=== PATIENT | male | born 1950 | race Caucasian/White ===

== ENCOUNTER 2021-11-30 07:05 | Day surgery (SDC) | payer OTHER ==
[2021-11-25 10:08] LABS: Potassium 4.5 mmol/L (3.5-5.1)
[2021-11-25 10:10] LABS: Absolute Lymphocytes (CBC) 2.4 K/uL (0.7-4.9); Hematocrit 49.3 % (39.6-49.0); Lymphocytes % 29.2 % (15.3-44.8); MCV 82.9 fL (80-100); MPV 8.5 fL (7.6-11.3); RBC Red Blood Cell Count 5.94 M/uL (4.33-5.43)
[2021-11-25 10:25] LABS: SARS-CoV-2 Antigen Rapid Res Negative (Negative)
--- NOTE | 2021-11-25 12:39 | EKG ---
Test Date: 2021-11-25 Test Time: 10:00:56 Assembly Cleaner: TERRY MEASUREMENT RESULTS: Intervals: Rate: 68 VT: QRSD: 86 QT: 380 QTc: 404 Baker: P: VT: QRS: -32 T: 60 INTERPRETIVE STATEMENTS: Atrial fibrillation with premature ventricular or aberrantly conducted complexes Left axis deviation Abnormal ECG Compared to ECG 04/25/2012 20:32:20 Ventricular premature complex(es) now present Left-axis deviation now present Electronically Signed On 11-25-21 12:38:52 CDT by Sanchez Sung
[2021-11-30] MEDS ORDERED: CEFAZOLIN 2 GM IN 0.9% NACL 2 GM/100 ML BAG ONE (07:26)
[2021-11-30] MEDS ORDERED: NA CHLORIDE 0.9% 1,000 ML ONE ×2 (07:26→10:59)
[2021-11-30] MEDS ORDERED: DEPO-MEDROL 40 MG/ML IM ONE (07:27)
[2021-11-30] MEDS ORDERED: KETAMINE HCL 500 MG/5 ML VIAL ONE (08:06)
[2021-11-30] MEDS ORDERED: FENTANYL CITR 100 MCG/2 ML ONE ×2 (08:06→09:44)
[2021-11-30] MEDS ORDERED: propofoL 200 MG/20 ML VIAL IV ONE (08:06)
[2021-11-30] MEDS ORDERED: dexAMETHasone 10 MG/ML VIAL ONE (08:07)
[2021-11-30] MEDS ORDERED: ROCURONIUM 50 MG/5 ML VIAL IV ONE (08:07)
[2021-11-30] MEDS ORDERED: LIDOCAINE 2% MPF 5 ML VIAL ONE (08:07)
[2021-11-30] MEDS ORDERED: MIDAZOLAM HCL 2 MG/2 ML INJ ONE (08:07)
[2021-11-30] MEDS ORDERED: ONDANSETRON 4 MG/2 ML VIAL ONE (08:12)
[2021-11-30] MEDS ORDERED: NS 0.9% VIAL 20 ML ONE (08:17)
[2021-11-30] MEDS ORDERED: THROMBIN 5000 UNITS/VIAL TOP ONE (08:41)
[2021-11-30] MEDS ORDERED: GLYCOPYRROLATE 0.2 MG/ML SYR ONE (09:54)
[2021-11-30] MEDS: HYDROMORPHONE HCL 1 MG/ML INJ ONE ×4 (10:25→10:48)
[2021-11-30] MEDS ORDERED: INSULIN -REGULAR HUMAN 50 UNIT/0.5 ML ML ONE (10:41)
[2021-11-30 10:50] VITALS: O2SAT 96
--- NOTE | 2021-11-30 11:58 | RAD REPORT ---
EXAM DESCRIPTION: RAD - Fluoroscopy <1 Hour - 11/30/2021 11:27 am FINDINGS: There were 7 portable C-arm views submitted from a fluoroscopic assisted spinal procedure. Fluoro time was less than 0.1 minutes. Cumulative dose was 5.23 mGy.
[2021-11-30] MEDS ORDERED: HYDROCODONE/APAP 10/325 TAB ONE (12:01)
[2021-11-30 12:21] VITALS: TEMP 97.6
[2021-11-30 12:53] VITALS: BP 146/79
== END 2021-11-30 12:52 | disposition home or self-care (01) ==
LOC: OR 07:05
PROVIDERS: ATTEND Orthopaedic Surgery
PROC: 0ST20ZZ Resection of Lumbar Vertebral Disc, Open Approach (ICD-10-PCS; principal; 2021-11-30 08:45)
DX: M51.27 Other intervertebral disc displacement, lumbosacral region (principal); M54.9 Dorsalgia, unspecified; Z20.822 Contact with and (suspected) exposure to COVID-19; I10 Essential (primary) hypertension; E11.9 Type 2 diabetes mellitus without complications; N28.9 Disorder of kidney and ureter, unspecified; I25.10 Atherosclerotic heart disease of native coronary artery without angina pectoris
CPT/HCPCS: 36415; 76000; 80048; 82947; 85025; 87811; 93005; J0690; J1030; J1100; J1170; J1815; J2250; J2405; J2704; J3010; J7030

== ENCOUNTER 2023-12-19 10:53 | Emergency (ER) | payer OTHER ==
[2023-12-19] MEDS ORDERED: NA CHLORIDE 0.9% 1,000 ML ONE (11:27)
[2023-12-19 11:35] LABS: Absolute Lymphocytes (CBC) 1.2 K/uL (0.7-4.9); Absolute Monocytes 0.5 K/uL (0.1-1.3); Absolute Neutrophil 6.3 K/uL (1.8-8.0); Basophils % 0.3 % (0-1.3); Eosinophils % 0.2 % (0-4.4); Hematocrit 43.3 % (39.6-49.0); Lymphocytes % 14.6 % (15.3-44.8); MCH 27.7 pg (27.0-35.0); MCHC 32.4 g/dL (32.0-36.0); MCV 85.6 fL (80-100); MPV 8.4 fL (7.6-11.3); Monocytes % 6.5 % (3.3-12.3); Neutrophils % 78.4 % (41.7-73.7); Platelets 249 thou/uL (152-406); RBC Red Blood Cell Count 5.05 M/uL (4.33-5.43); Red Cell Distribution Width 14.2 % (12.1-15.2)
[2023-12-19 11:43] LABS: PT Prothrombin Time 13.3 SECONDS (9.4-12.5); PTT, Activated Partial Thromb 34.1 SECONDS (24.3-36.9); Protime INR 1.19
[2023-12-19] MEDS ORDERED: ACETAMINOPHEN 500 MG TAB ONE (11:44)
[2023-12-19 11:54] LABS: ALT/SGPT < 14 U/L (16-61); AST/SGOT 13 U/L (15-37); Albumin 3.2 g/dL (3.4-5.0); Albumin/Globulin Ratio 0.8 (1.1-1.8); Alkaline Phosphatase 43 U/L (45-117); Anion Gap 9.3 mEq/L (5.0-15.0); BUN Blood Urea Nitrogen 27 mg/dL (7-18); Bicarbonate 28 mEq/L (21-32); Bilirubin Direct < 0.2 mg/dL (0-0.2); Bilirubin Indirect, Calculated 0.2 mg/dL (0.2-0.8); Bilirubin Total 0.4 mg/dL (0.2-1.0); Globulin 3.8 g/dL (2.3-3.5); Glomerular Filtration Rate 45 ml/min (=/>90); Glucose Level 135 mg/dL (74-106); Magnesium 2.2 mg/dL (1.6-2.4); Potassium 4.3 mEq/L (3.5-5.1); Sodium Level 141 mEq/L (136-145)
--- NOTE | 2023-12-19 12:13 | RAD REPORT ---
EXAM DESCRIPTION: RAD - Chest Single View - 12/19/2023 11:56 am CLINICAL HISTORY: dizziness COMPARISON: Chest Pa And Lat (2 Views) dated 04/25/2017; CHEST PA AND LAT 2 VIEW dated 01/19/2012; CH EST PA AND LAT 2 VIEW dated 02/08/2002 FINDINGS: Lines: None. Lungs: No evidence of edema or pneumonia. Pleural: No significant pleural effusions or pneumothorax. Cardiac: The heart size is within normal limits. Mediastinum: Within normal limits. Bones: No acute fractures. Other: None IMPRESSION: No acute cardiopulmonary disease.
--- NOTE | 2023-12-19 12:22 | RAD REPORT ---
EXAM DESCRIPTION: CT - Head Brain Wo Cont - 12/19/2023 12:13 pm CLINICAL HISTORY: DIZZINESS COMPARISON: Head angio dated 12/19/2023 TECHNIQUE: All CT scans are performed using dose optimization technique as appropriate and may inclu de automated exposure control or mA/KV adjustment according to patient size. FINDINGS: No intracranial hemorrhage, hydrocephalus or extra-axial fluid collection.No areas of brai n edema or evidence of midline shift. The paranasal sinuses and mastoids are clear. The calvarium is intact. IMPRESSION: No acute intracranial abnormality.
--- NOTE | 2023-12-19 12:27 | RAD REPORT ---
EXAM DESCRIPTION: CT - Neck Angio - 12/19/2023 12:13 pm CLINICAL HISTORY: Dizziness, visual field deficit COMPARISON: No comparisons TECHNIQUE: CT angiography of the neck vessels was performed with maximum intensity reformatted image s. CAROTID STENOSIS REFERENCE USING NASCET CRITERIA: Mild - <50% stenosis. Moderate - 50-69% stenosis. Severe - 70-94% stenosis. Near occlusion - 95-99% stenosis. Occluded - 100% stenosis. All CT scans are performed using dose optimization technique as appropriate and may include automated exposure control or mA/KV adjustment according to patient size. FINDINGS: No significant flow abnormality is seen of the common carotid bilaterally. Calcified plaque present at the left proximal ICA but with less than 50% stenosis. The right ICA is p atent. Both external carotid arteries are patent. Moderate to severe stenosis (estimated at approximately 7%) noted at the origin of the left vertebral artery. The right vertebral artery is patent. The vessels are codominant. IMPRESSION: No hemodynamically sig stenosis involving either carotid system. Moderate to severe sten osis at the left vertebral artery origin.
--- NOTE | 2023-12-19 12:27 | RAD REPORT ---
EXAM DESCRIPTION: CT - Head angio - 12/19/2023 12:13 pm CLINICAL HISTORY: DIZZINESS COMPARISON: No comparisons TECHNIQUE: CT angiography of the head was performed with maximum intensity reformatted images. 3D ma ximum intensity pixel (MIP) reconstructions were created All CT scans are performed using dose optimization technique as appropriate and may include automated exposure control or mA/KV adjustment according to patient size. FINDINGS: Anterior circulation: No aneurysm or large vessel occlusion. No hemodynamically significant stenosis. No arteriovenous malf ormation identified. Mild bilateral cavernous carotid atherosclerotic plaque. Posterior circulation: No aneurysm or large vessel occlusion. No hemodynamically significant stenosis. No arteriovenous malf ormation identified. IMPRESSION: No significant flow abnormality is detected.
--- NOTE | 2023-12-19 12:56 | ER ---
Nurse's Notes [facility] Name: Mahendra Durham Age: 73 yrs Sex: Male : 1950 Arrival Date: 12/19/2023 Time: 10:53 Bed 13 Private MD: Diagnosis: Cerebrovascular accident Presentation: 12/18 10:56 Chief complaint: Patient states: DIZZINESS, HEADACHE X 1 WEEK. WORSE TODAY. DIZZINESS db WORSE WHEN STANDING/WALKING, FEELS LIKE ROOM IS MOVING WHEN WALKING. Coronavirus screen: Client denies travel out of the [place] in the last 14 days. At this time, the client does not indicate any symptoms associated with coronavirus-19. Ebola Screen: Patient negative for fever greater than or equal to 101.5 degrees Fahrenheit, and additional compatible Ebola Virus Disease symptoms Patient denies exposure to infectious person. Patient denies travel to an Ebola-affected area in the 21 days before illness onset. No symptoms or risks identified at this time. Initial Sepsis Screen: Does the patient meet any 2 criteria? No. Patient's initial sepsis screen is negative. Does the patient have a suspected source of infection? No. Patient's initial sepsis screen is negative. Risk Assessment: Do you want to hurt yourself or someone else? Patient reports no desire to harm self or others. Onset of symptoms was December 13, 2023. 10:56 Method Of Arrival: Ambulatory db 10:56 Acuity: ROSIE 2 db 10:56 No acute neurological deficit is noted. Pre-hospital glucose is not applicable to this db patient. Triage Assessment: 10:58 The onset of the patients symptoms was December 19, 2023 at 11:15. Headache History: The db patient has had previous headaches and this one is different than previous episodes. General: Appears in no apparent distress. comfortable, Behavior is calm, cooperative. Pain: Complains of pain in head. Pain: Pain began gradually, Also complains of. Neuro: [place] Agitation-Sedation Scale (RASS): Level of Consciousness is awake, alert, obeys commands, Oriented to person, place, time, situation, Speech is normal, Reports PERIPHERAL VISION CHANGES. Stroke Activation: Symptom onset > 6 hours Physician: ED Attending; Name: ; Notified At: ; Arrived At: Physician: Mid-Level Provider; Name: ; Notified At: ; Arrived At: Physician: [not used]; Name: ; Notified At: ; Arrived At: Physician: [not used]; Name: ; Notified At: ; Arrived At: Physician: [not used]; Name: ; Notified At: ; Arrived At: Historical: - Allergies: 11:12 Codeine; db - Home Meds: 11:12 Eliquis oral [Active]; Metoprolol Tartrate Oral [Active]; metformin Oral [Active]; db - PMHx: 11:12 Atrial fibrillation; diabetes mellitus; Hypertensive disorder; db - PSHx: 11:12 Cholecystectomy; db - Immunization history:: Adult Immunizations unknown. - Infectious Disease History:: Denies. - Social history:: Smoking status: Patient denies any tobacco usage or history of. - Family history:: not pertinent. Screenin:48 [facility] ED Fall Risk Assessment (Adult) History of falling in the last 3 months, db including since admission No falls in past 3 months (0 pts) Confusion or Disorientation No (0 pts) Intoxicated or Sedated No (0 pts) Impaired Gait No (0 pts) Mobility Assist Device Used No (0 pt) Altered Elimination No (0 pt) Score/Fall Risk Level 0 - 2 = Low Risk Oriented to surroundings, Maintained a safe environment. Abuse screen: Denies threats or abuse. Denies injuries from another. Nutritional screening: No deficits noted. Tuberculosis screening: No symptoms or risk factors identified. Assessment: 11:15 VAN Scoring: Arm Drift: Patients demonstrates NO arm weakness. Patient is VAN Negative. db Aphasia: No aphasia noted. Neglect: No neglect noted. General: Appears in no apparent distress. comfortable, Behavior is calm, cooperative. Pain: Complains of pain in head. Neuro: Level of Consciousness is awake, alert, obeys commands, Oriented to person, place, time, situation, Reports dizziness, headache. 11:30 [place] Swallow Protocol Brief Cognitive Screen What is your name? Normal, Where are you db right now? Normal, What year is it? Normal. Oral Mechanism Examination Facial Symmetry: Normal, Motion: Normal, Lip Closure: Normal, Oral Mechanism Result: Normal. 3 oz Water Swallow Challenge: Pt able to drink all water without stopping, coughing, choking or throat clearing: Yes Result: PASS Notified: Bernardino Espinal MD. [place] Swallow Protocol. TNKase (Tenecteplase) Screening: Contraindications: Other: OUTSIDE WINDOW ON BLOOD THINNERS Is the patient on Aspirin, Heparin, or Warfarin: Yes. 11:49 Reassessment: RADIOLOGY AT PATIENT BEDSIDE. db 12:30 Reassessment: Patient appears in no apparent distress at this time. Patient and/or db family updated on plan of care and expected duration. Pain level reassessed. Patient is alert, oriented x 3, equal unlabored respirations, skin warm/dry/pink. 13:24 Reassessment: Patient appears in no apparent distress at this time. Patient and/or db family updated on plan of care and expected duration. Pain level reassessed. Patient is alert, oriented x 3, equal unlabored respirations, skin warm/dry/pink. Patient states feeling better. Vital Signs: 10:56 BP 106 / 62; Pulse 69; Resp 18; Temp 97.7(O); Pulse Ox 97% on R/A; db 11:50 Weight 96.16 kg; Height 5 ft. 11 in. ; db 13:00 BP 108 / 59; Pulse 60; Resp 16; Temp 97.8; Pulse Ox 98% on R/A; db 11:50 Body Mass Index 29.57 (96.16 kg, 180.34 cm) db Vitals: 11:51 Cardiac Rhythm Assessment Irregular Atrial fibrillation. db NIH Stroke Scale Scores: 11:15 NIHSS Score: 1 db ED Course: 10:55 Patient arrived in ED. im 10:57 Bernardino Espinal MD is Attending Physician. rt 11:09 Ashley Ayala, RN is Primary Nurse. db 11:11 Triage completed. db 11:25 Inserted saline lock: 20 gauge in right antecubital area, using aseptic technique. db Blood collected. Flushed with 10 mL NS. 11:27 Arm band placed on Patient placed in an exam room. db 11:39 EKG done, reviewed by Bernardino Espinal MD. db 11:51 Patient has correct armband on for positive identification. Bed in low position. Call db light in reach. Side rails up X 1. Client placed on continuous cardiac and pulse oximetry monitoring. NIBP monitoring applied. traffic monitor specialist on. Pulse ox on. NIBP on. Pillow given. 11:58 Stroke CXR 1 View In Process Unspecified. EDMS 12:15 CT Neck Angio In Process Unspecified. EDMS 12:15 CT Head Brain wo Cont In Process Unspecified. EDMS 12:15 Head angio In Process Unspecified. EDMS 12:54 Efra Marcus MD is Referral Physician. rt 13:24 Provided Education on: DISCHARGE. db 13:24 No provider procedures requiring assistance completed. IV discontinued, intact, db bleeding controlled, No redness/swelling at site. Administered Medications: 11:32 Drug: NS 0.9% IV 1000 ml IV at 1 bolus Per protocol; 1000 mL bolus Route: IV; Rate: 1 db bolus; Site: right antecubital; 13:25 Follow up: Response: No adverse reaction; IV Status: Completed infusion; IV Intake: db 1000ml 11:45 Drug: Acetaminophen PO 1000 mg PO once Route: PO; db 13:25 Follow up: Response: No adverse reaction db Medication: 11:51 VIS not applicable for this client. db Point of Care Testing: Blood Glucose: 11:26 Blood Glucose: 133 mg/dL; db Ranges: Intake: 13:25 IV: 1000ml; Total: 1000ml. db Outcome: 12:55 Discharge ordered by MD. rt 13:24 Discharged to home ambulatory, with family, db 13:24 Condition: stable 13:24 Discharge instructions given to patient, Instructed on discharge instructions, follow up and referral plans. 13:26 Patient left the ED. db NIH Stroke Scale - NIH Stroke Score Date: 12/19/2023 Time: 11:15 Total Score = 1 10. Dysarthria (speech clarity - read or repeat words) - 0(Normal) 11. Extinction and Inattention (visual/tactile/auditory/spatial/personal) - 0(No abnormality) 1a. Level of Consciousness (LOC) - 0(Alert) 1b. Level of Consciousness (LOC) (Month \T\ Age) - 0(Both) 1c. LOC Commands (Open \T\ Closes Eyes/Director Biostatistics) - 0(Both) 2. Best Gaze (Lateral Gaze Paresis) - 0(Normal) 3. Visual Field Loss - 1(Partial hemianopia) 4. Facial Palsy - 0(Normal) 5a. Left Arm: Motor (10-second hold) - 0(No drift) 5b. Right Arm: Motor (10-second hold) - 0(No drift) 6a. Left Leg: Motor (5-second hold - always test supine) - 0(No drift) 6b. Right Leg: Motor (5-second hold - always test supine) - 0(No drift) 7. Limb Ataxia (finger/nose \T\ heel/amos - test with eyes open) - 0(Absent) 8. Sensory Loss (pinprick arms/legs/face) - 0(Normal) 9. Best Language: Aphasia (description/naming/reading) - 0(No aphasia) Initials: db Signatures: Dispatcher [employer] Ashley Adams RN RN db Bernardino Espinal MD MD rt Joan Álvarez im
--- NOTE | 2023-12-19 12:56 | EDPHYS ---
Physician Documentation [facility] Name: Mahendra Durham Age: 73 yrs Sex: Male : 1950 Arrival Date: 12/19/2023 Time: 10:53 Bed 13 Private MD: ED Physician Bernardino Espinal HPI: 12/18 11:28 This 73 yrs old Male presents to ER via Ambulatory with complaints of Headache, rt Dizziness, General Weakness. 11:28 Patient presents to the ED with dizziness, unsteadiness on his feet as well as a rt generalized weakness for about 1 week. States that it waxes and wanes in intensity but has been overall worsening. Patient states that this makes it difficult for him to walk. Denies chest pains, other acute complaints at this time, symptoms are moderate in severity, no other aggravating or alleviating factors.. Historical: - Allergies: 11:12 Codeine; db - Home Meds: 11:12 Eliquis oral [Active]; Metoprolol Tartrate Oral [Active]; metformin Oral [Active]; db - PMHx: 11:12 Atrial fibrillation; diabetes mellitus; Hypertensive disorder; db - PSHx: 11:12 Cholecystectomy; db - Immunization history:: Adult Immunizations unknown. - Infectious Disease History:: Denies. - Social history:: Smoking status: Patient denies any tobacco usage or history of. - Family history:: not pertinent. ROS: 11:28 Constitutional: Negative for fever, chills, and weight loss, Cardiovascular: Negative rt for chest pain, palpitations, and edema, Respiratory: Negative for shortness of breath, cough, wheezing, and pleuritic chest pain, Abdomen/GI: Negative for abdominal pain, nausea, vomiting, diarrhea, and constipation, MS/Extremity: Negative for injury and deformity, Psych: Negative for depression, anxiety, suicide ideation, homicidal ideation, and hallucinations, 11:28 Neuro: Positive for dizziness, gait disturbance, weakness, Exam: 11:28 Constitutional: This is a well developed, well nourished patient who is awake, alert, rt and in no acute distress. Chest/axilla: Normal chest wall appearance and motion. Nontender with no deformity. No lesions are appreciated. Cardiovascular: Regular rate and rhythm with a normal S1 and S2. No gallops, murmurs, or rubs. Normal PMI, no JVD. No pulse deficits. Respiratory: Lungs have equal breath sounds bilaterally, clear to auscultation and percussion. No rales, rhonchi or wheezes noted. No increased work of breathing, no retractions or nasal flaring. Abdomen/GI: Soft, non-tender, with normal bowel sounds. No distension or tympany. No guarding or rebound. No evidence of tenderness throughout. Skin: Warm, dry with normal turgor. Normal color with no rashes, no lesions, and no evidence of cellulitis. MS/ Extremity: Pulses equal, no cyanosis. Neurovascular intact. Full, normal range of motion. Psych: Awake, alert, with orientation to person, place and time. Behavior, mood, and affect are within normal limits. 11:28 Eyes: Extraocular muscles are intact, visual field deficits laterally on the right eye, visual méndez otherwise intact, head impulse and test of skew negative. 11:28 Neuro: Cranial nerves II through XII intact except for otherwise noted, speech normal, strength and sensation intact in upper and lower extremities, no ataxia on [id number], 11:45 ECG was reviewed by the Attending Physician. rt Vital Signs: 10:56 BP 106 / 62; Pulse 69; Resp 18; Temp 97.7(O); Pulse Ox 97% on R/A; db 11:50 Weight 96.16 kg; Height 5 ft. 11 in. ; db 13:00 BP 108 / 59; Pulse 60; Resp 16; Temp 97.8; Pulse Ox 98% on R/A; db 11:50 Body Mass Index 29.57 (96.16 kg, 180.34 cm) db NIH Stroke Scale Scores: 11:15 NIHSS Score: 1 db MDM: 11:01 Patient medically screened. rt 12:56 Differential diagnosis: Intracranial hemorrhage, central vertigo, peripheral vertigo, rt acute CVA. Data reviewed: vital signs, nurses notes, lab test result(s), EKG, radiologic studies. Consideration of Admission/Observation Commended to the patient that he be admitted to the hospital. Discussed benefits of admission to include further testing, therapies. He is adamant that he does not wish to stay in the hospital. He was informed of the risks of leaving including worsening symptoms, further CVA with worsening neurologic outcome. He understands these risks, is able to verbalize them. He is of sound mind and has decisional making capacity. He was informed that he may return anytime if he changes mind or if he has worsening symptoms. Patient was instructed to follow-up as an outpatient with primary care and neurology should he not decide to come back to the hospital.. Management of patient was discussed with the following: Policy Writer Sales: Discussed case with Dr. Marcus. I considered the following discharge prescriptions or medication management in the emergency department Medications were administered in the Emergency Department. See MAR. Independent interpretation of the following test(s) in the Emergency Department CT Scan: My interpretation is No intracranial hemorrhage seen on interpretation of CT scan images. Care significantly affected by the following chronic conditions: A-fib, diabetes, hypertension. Counseling: I had a detailed discussion with the patient and/or guardian regarding the historical points, exam findings, and any diagnostic results supporting the discharge/admit diagnosis, lab results, radiology results, the need for further work-up and treatment in the hospital. Response to treatment: There is no appreciated change of the patient's symptoms at this time. Refusal of service: The patient/guardian displays adequate decision making capability and despite a detailed discussion of alternatives, benefits, risks, and consequences refuses: Admission to the hospital for further work-up and treatment. 12/18 11:12 Order name: Basic Metabolic Panel; Complete Time: 11:59 rt 12/18 11:12 Order name: CBC with Diff; Complete Time: 11:43 rt 12/18 11:12 Order name: Hepatic Function; Complete Time: 11:59 rt 12/18 11:12 Order name: High Sensitivity Troponin; Complete Time: 11:59 rt 12/18 11:12 Order name: Magnesium; Complete Time: 11:59 rt 12/18 11:12 Order name: Protime (+inr); Complete Time: 11:59 rt 12/18 11:12 Order name: Ptt, Activated; Complete Time: 11:59 rt 12/18 11:38 Order name: Glucose, Ancillary Testing; Complete Time: 11:43 EDMS 12/18 11:12 Order name: CT Neck Angio; Complete Time: 12:29 rt 12/18 11:12 Order name: Stroke CXR 1 View; Complete Time: 12:29 rt 12/18 11:12 Order name: CT Head Brain wo Cont; Complete Time: 12:29 rt 12/18 12:03 Order name: Head angio; Complete Time: 12:29 EDMS 12/18 11:12 Order name: Accucheck; Complete Time: :45 rt 12/18 11:12 Order name: Cardiac monitoring; Complete Time: 45 rt 12/18 11:12 Order name: EKG - Nurse/Tech; Complete Time: :45 rt 12/18 11:12 Order name: IV Saline Lock; Complete Time: :45 rt 12/18 11:12 Order name: Labs collected and sent; Complete Time: :45 rt 12/18 11:12 Order name: NPO; Complete Time: :45 rt 12/18 11:12 Order name: O2 Per Protocol; Complete Time: :45 rt 12/18 11:12 Order name: O2 Sat Monitoring; Complete Time: 45 rt 12/18 11:12 Order name: Stroke Swallow Screen; Complete Time: :45 rt EC:45 Rate is 52 beats/min. Rhythm is regular, A fib with No ectopy. QRS [place] is Normal. QRS rt interval is normal. QT interval is normal. No Q waves. No ST changes noted. Administered Medications: 11:32 Drug: NS 0.9% IV 1000 ml IV at 1 bolus Per protocol; 1000 mL bolus Route: IV; Rate: 1 db bolus; Site: right antecubital; 13:25 Follow up: Response: No adverse reaction; IV Status: Completed infusion; IV Intake: db 1000ml :45 Drug: Acetaminophen PO 1000 mg PO once Route: PO; db 13:25 Follow up: Response: No adverse reaction db Point of Care Testing: Blood Glucose: : Blood Glucose: 133 mg/dL; db Ranges: Critical Glucose Levels:Adult <50 mg/dl or >400 mg/dl <40 mg/dl or >180 mg/dl Disposition Summary: 12/19/23 12:55 Discharge Ordered Notes: Location: Home rt Problem: new rt Symptoms: are unchanged rt Condition: Fair rt Diagnosis - Cerebrovascular accident rt Followup: rt - With: Efra Marcus MD - When: 1 - 2 days - Reason: Discharge Instructions: - Discharge Summary Sheet rt - Dizziness rt - Ischemic Stroke rt Forms: - Medication Reconciliation Form rt - Antibiotic Education rt - Prescription Opioid Use rt - Patient Portal Instructions rt - Leadership Thank You Letter rt NIH Stroke Scale - NIH Stroke Score Date: 12/19/2023 Time: 11:15 Total Score = 1 10. Dysarthria (speech clarity - read or repeat words) - 0(Normal) 11. Extinction and Inattention (visual/tactile/auditory/spatial/personal) - 0(No abnormality) 1a. Level of Consciousness (LOC) - 0(Alert) 1b. Level of Consciousness (LOC) (Month \T\ Age) - 0(Both) 1c. LOC Commands (Open \T\ Closes Eyes/Digital Production Operator) - 0(Both) 2. Best Gaze (Lateral Gaze Paresis) - 0(Normal) 3. Visual Field Loss - 1(Partial hemianopia) 4. Facial Palsy - 0(Normal) 5a. Left Arm: Motor (10-second hold) - 0(No drift) 5b. Right Arm: Motor (10-second hold) - 0(No drift) 6a. Left Leg: Motor (5-second hold - always test supine) - 0(No drift) 6b. Right Leg: Motor (5-second hold - always test supine) - 0(No drift) 7. Limb Ataxia (finger/nose \T\ heel/amos - test with eyes open) - 0(Absent) 8. Sensory Loss (pinprick arms/legs/face) - 0(Normal) 9. Best Language: Aphasia (description/naming/reading) - 0(No aphasia) Initials: db Signatures: Dispatcher [employer] Ashley Adams RN RN Bernardion Alfred MD MD rt Corrections: (The following items were deleted from the chart) 11:13 11:13 Chest Single View+RAD.RAD.BRZ ordered. EDMS EDMS 11:13 11:13 Head Brain Wo Cont+CT.RAD.BRZ ordered. EDMS EDMS
[2023-12-19 13:41] VITALS: BP 108/59; TEMP 97.8; O2SAT 98
--- NOTE | 2023-12-19 13:43 | EKG ---
Test Date: 2023-12-19 Test Time: 11:39:59 Thermometer Maker: ADOLPH MEASUREMENT RESULTS: Intervals: Rate: 52 DE: QRSD: 84 QT: 414 QTc: 385 [place]: P: DE: QRS: 8 T: 35 INTERPRETIVE STATEMENTS: Atrial fibrillation with slow ventricular response Abnormal ECG Compared to ECG 11/25/2021 10:00:56 Ventricular premature complex(es) no longer present Left-axis deviation no longer present Electronically Signed On 12-19-23 13:43:03 CDT by Jace Cadena
== END 2023-12-19 13:26 | disposition home or self-care (01) ==
LOC: ER 10:53
DX: I63.9 Cerebral infarction, unspecified (principal); R29.701 NIHSS score 1; I10 Essential (primary) hypertension; I48.91 Unspecified atrial fibrillation; Z79.01 Long term (current) use of anticoagulants
CPT/HCPCS: 96361; 93005; 85025; 80048; 36415; 83735; 85610; 82947; 80076; 85730; 84484; 70450; 70496; 70498; 71045; 96360; 99285; Q9967; J7030

== ENCOUNTER 2024-12-11 09:41 | Inpatient (IN) | payer OTHER ==
[2024-12-11] MEDS ORDERED: ONDANSETRON 4 MG/2 ML VIAL ONE (10:06)
[2024-12-11] MEDS ORDERED: NA CHLORIDE 0.9% 500 ML ONE (10:07)
[2024-12-11] MEDS ORDERED: NA CHLORIDE 0.9% 100 ML ONE (10:07)
[2024-12-11] MEDS ORDERED: PIPERACIL/TAZO 3.375 GM VIAL IV ONE (10:07)
[2024-12-11] MEDS ORDERED: FENTANYL CITR 100 MCG/2 ML ONE (10:09)
[2024-12-11 10:12] LABS: Absolute Lymphocytes (CBC) 1.6 K/uL (0.7-4.9); Hematocrit 45.9 % (39.6-49.0); Hemoglobin 15.5 g/dL (13.6-17.9); MCH 28.0 pg (27.0-35.0); MCHC 33.8 g/dL (32.0-36.0); MCV 82.9 fL (80-100); MPV 8.2 fL (7.6-11.3); Nucleated RBC Absolute Count 0.0 (0-0); Nucleated Red Blood Cells % 0.1 % (0-0); RBC Red Blood Cell Count 5.53 M/uL (4.33-5.43); White Blood Count 10.10 thou/uL (4.3-10.9)
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
[2024-12-11 10:26] LABS: Anion Gap 7.9 mEq/L (5.0-15.0); BUN Blood Urea Nitrogen 31.0 mg/dL (7-18); Glucose Level 58.0 mg/dL (74-106); Potassium 3.9 mEq/L (3.5-5.1)
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
[2024-12-11] MEDS ORDERED: D50W 25 GM/50 ML SYRINGE IV PRN (11:29)
[2024-12-11] MEDS ORDERED: GLUCAGON 1 MG/VIAL IV PRN (11:29)
[2024-12-11] MEDS: INSULIN REGULAR (HUMAN) 100 UNIT/ML SQ SCH (11:30)
[2024-12-11] MEDS ORDERED: ONDANSETRON 4 MG/2 ML VIAL IV PRN (11:37)
[2024-12-11] MEDS: VANCOMYCIN 1.5 GM in NA CHLORIDE 0.9% 500 ML IVPB SCH (13:00)
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
[2024-12-11] MEDS ORDERED: NA CHLORIDE 0.9% 1,000 ML ONE (13:44)
[2024-12-11] MEDS ORDERED: TRAMADOL HCL 50 MG TAB ONE (14:32)
[2024-12-11] MEDS: TRAMADOL HCL 50 MG TAB PO PRN (14:41)
[2024-12-11] MEDS: NA CHLORIDE 0.9% 1,000 ML IV SCH (15:36)
[2024-12-11 15:41] VITALS: BMI 27.7
[2024-12-11] MEDS ORDERED: HOME MED 1 EA UNK (Trazodone Hcl [Trazodone Hcl] 100 MG Tablet) PO PRN (16:49)
[2024-12-11 19:59] LABS: Sqamous Epithelial None Seen /HPF (None Seen); Urine Culture Reflex Order NOT NEEDED; Urine Microscopic Reflex YN ORDER UMIC
[2024-12-11 20:10] LABS: METHAMPHETAM NEGATIVE (NEGATIVE); THC Cannibis NEGATIVE (NEGATIVE)
[2024-12-11] MEDS: ATORVASTATIN 10 MG TAB PO SCH (21:00)
[2024-12-11] MEDS: MORPHINE 2 MG/ML SYR IV ONE ×2 (21:13→22:25)
[2024-12-11] MEDS: CEFEPIME 2 GM in NA CHLORIDE 0.9% 100 ML IV SCH (21:16)
[2024-12-11] MEDS: APIXABAN 5 MG TABLET PO SCH (21:53)
[2024-12-12] MEDS: MORPHINE 2 MG/ML SYR IV PRN (04:48)
[2024-12-12 07:18] LABS: Absolute Lymphocytes (CBC) 2.5 K/uL (0.7-4.9); Hematocrit 40.4 % (39.6-49.0); Hemoglobin 13.4 g/dL (13.6-17.9); MCH 27.9 pg (27.0-35.0); MCHC 33.2 g/dL (32.0-36.0); MCV 83.9 fL (80-100); MPV 8.3 fL (7.6-11.3); Nucleated RBC Absolute Count 0.0 (0-0); Nucleated Red Blood Cells % 0.1 % (0-0); RBC Red Blood Cell Count 4.82 M/uL (4.33-5.43); White Blood Count 8.20 thou/uL (4.3-10.9)
[2024-12-12 07:46] LABS: Anion Gap 10.2 mEq/L (5.0-15.0); BUN Blood Urea Nitrogen 24.0 mg/dL (7-18); Glucose Level 126.0 mg/dL (74-106); Magnesium 1.9 mg/dL (1.6-2.4); Potassium 4.2 mEq/L (3.5-5.1)
[2024-12-12] MEDS ORDERED: HOME MED 1 EA UNK (Simvastatin [Simvastatin] 20 MG Tablet) PO SCH (09:00)
[2024-12-12] MEDS: DIGOXIN 0.25 MG TABLET PO SCH (09:00)
[2024-12-12] MEDS: METOPROLOL XL 50 MG TAB PO SCH (09:00)
[2024-12-12] MEDS: FENOFIBRATE 160 MG TAB PO SCH (09:00)
[2024-12-12] MEDS ORDERED: BUPIVACAINE 0.5% PF 10 ML VIAL ONE (11:51)
[2024-12-12] MEDS ORDERED: LIDOCAINE 2% MPF 5 ML VIAL ONE (11:54)
[2024-12-12] MEDS ORDERED: FENTANYL CITR 100 MCG/2 ML ONE ×2 (11:55→13:12)
[2024-12-12] MEDS ORDERED: ONDANSETRON 4 MG/2 ML VIAL ONE (13:13)
[2024-12-12] MEDS: SILVER SULFADIAZINE 1% 25 GM TOP ONE (13:17)
[2024-12-12] MEDS: FENTANYL CITR 100 MCG/2 ML ONE (14:05)
[2024-12-12 14:20] VITALS: O2SAT 99
[2024-12-12] MEDS: ACETAMINOPHEN 325 MG TABLET PO PRN (16:56)
[2024-12-12] MEDS: POTASS/SODIUM PHOSPHATE 1 PKT POWD.PACK PO ONE ×2 (17:26→21:40)
--- NOTE | 2024-12-12 17:29 | P.PN ---
Date of Service: 12/12/24 Subjective Awake with some agitation of being in the hospital Incision and drainage today, tolerated well ROS 10 point ROS as noted above, otherwise negative Physical Exam General: Alert and Oriented x3, NAD HEENT: Atraumatic, Normocephalic Neck: Supple, 2+ carotid pulse no bruit Respiratory: Clear BBS, Normal air movement, on room air Cardiovascular: RRR, Normal S1 S2 Capillary refill: <2 Seconds Gastrointestinal: Soft and benign Musculoskeletal: No clubbing Integumentary: No rashes, Skin breakdown (Right lower extremity) Neurological: Normal speech, Normal tone Vitals Reviewed Problem list Right lower leg wound Hypophosphatemia Diabetes mellitus Hypertension Atrial fibrillation Assessment and Plan Right lower leg wound -Dr. Recinos consulted - Incision and drainage today 12/12 - Restarted diet - Continue Vanco and cefepime - Monitor WBC and temperature - Dressings per Dr. Recinos - Pain control with caution while on atrial fibrillation medication that can increase bradycardia - Toxicology screening and serum alcohol pending Hypophosphatemia - Replace today - Monitoring a.m. labs Diabetes mellitus -Accu-Chek with sliding scale insulin - Strict blood sugar control to encourage wound healing Hypertension Atrial fibrillation -restarted eliquis - Continue home medications as appropriate DVT PPx Eliquis Full code LOS 24-hour OBS Discharge Plan: Home Plan to discharge in: 24 Hours Time Spent Managing Pts Care (In Minutes): 35
[2024-12-12] MEDS: TRAZODONE 50 MG TABLET PO PRN (21:41)
[2024-12-13 07:00] LABS: Absolute Lymphocytes (CBC) 2.4 K/uL (0.7-4.9); Hematocrit 38.2 % (39.6-49.0); Hemoglobin 12.8 g/dL (13.6-17.9); MCH 28.1 pg (27.0-35.0); MCHC 33.6 g/dL (32.0-36.0); MCV 83.6 fL (80-100); MPV 7.9 fL (7.6-11.3); Nucleated RBC Absolute Count 0.0 (0-0); Nucleated Red Blood Cells % 0.1 % (0-0); RBC Red Blood Cell Count 4.57 M/uL (4.33-5.43); White Blood Count 8.20 thou/uL (4.3-10.9)
[2024-12-13 07:15] LABS: Anion Gap 6.1 mEq/L (5.0-15.0); BUN Blood Urea Nitrogen 20.0 mg/dL (7-18); Glucose Level 142.0 mg/dL (74-106); Magnesium 1.9 mg/dL (1.6-2.4); Potassium 4.1 mEq/L (3.5-5.1)
[2024-12-13 08:38] VITALS: BP 121/58; TEMP 97.7
--- NOTE | 2024-12-13 12:09 | P.PN ---
Subjective Date of Service: 12/13/24 Chief Complaint: Right leg wound, s/p debridement Subjective: Tolerating diet, Improving Review of Systems General: Unremarkable Eyes: Unremarkable ENT: Unremarkable Respiratory: Unremarkable Cardiovascular: Unremarkable Gastrointestinal: Unremarkable Physical Examination - Vital Signs Temperature: 97.7 F Blood Pressure: 121/58 Pulse: 76 Respirations: 16 Pulse Ox (%): 99 - Physical Exam General: Alert, In no apparent distress, Oriented x3 HEENT: PERRLA Neck: Supple Respiratory: Normal air movement Cardiovascular: No edema Gastrointestinal: Soft and benign Integumentary: Other (s/p debridememt, cellulitis improved.) Assessment And Plan - Plan Pt want to go home and i reminded him about the importance of wound care daily as explained and verbalized back and [facility] f/u appt. May take shower with dressing off and clean with soap and water.
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
[2024-12-14] MEDS ORDERED: VANCOMYCIN 1.5 GM in NA CHLORIDE 0.9% 500 ML IVPB SCH (08:00)
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
== END 2024-12-13 17:54 | disposition home health service (06) | DRG 571 ==
LOC: ER 09:41 → ERHOLD 11:29 → 2ND 14:50 → OBSVTOIN 12-12 16:43
PROVIDERS: ADMIT Internal Medicine; ATTEND Internal Medicine
PROC: 0JBN0ZZ Excision of Right Lower Leg Subcutaneous Tissue and Fascia, Open Approach (ICD-10-PCS; principal; 2024-12-12 11:45)
DX: S81.801A Unspecified open wound, right lower leg, initial encounter (principal); L03.115 Cellulitis of right lower limb; E83.39 Other disorders of phosphorus metabolism; I10 Essential (primary) hypertension; E11.9 Type 2 diabetes mellitus without complications; I48.91 Unspecified atrial fibrillation; Z79.01 Long term (current) use of anticoagulants; Z79.4 Long term (current) use of insulin; Z79.2 Long term (current) use of antibiotics; Z79.891 Long term (current) use of opiate analgesic; T14.8XXA Other injury of unspecified body region, initial encounter; V86.95XA Unspecified occupant of 3- or 4- wheeled all-terrain vehicle (ATV) injured in nontraffic accident, initial encounter; Y92.9 Unspecified place or not applicable; Z90.49 Acquired absence of other specified parts of digestive tract; Z88.5 Allergy status to narcotic agent
CPT/HCPCS: 36415; 80048; 80202; 80307; 81001; 82077; 82947; 83735; 84100; 85025; 88304; 93005; 96365; 96375; 99284; G0378; J0692; J1815; J2003; J2270; J2405; J2543; J2704; J3010; J3370; J7030; J7040